=== PATIENT | female | born 1975 | race Caucasian/White ===

== ENCOUNTER 2019-11-22 06:14 | Emergency (ER) | payer MEDICAID ==
[~2019-11-22] VITALS: Ht 154.9 cm; Wt 77.1 kg
[2019-11-22 06:20] VITALS: Ht 154.9 cm; Wt 77.1 kg
[2019-11-22 07:28] LABS: PLATELET COUNT 341 x10^3mcL (130-400)
[2019-11-22 08:16] LABS: CALCIUM 8.1 mg/dL (8.5-10.1); CREATININE SERUM 3.1 mg/dL (0.6-1.0); POTASSIUM SERUM 3.9 mmol/L (3.5-5.1)
[2019-11-22 08:18] LABS: BAND NEUTROPHIL 10 % (0-10); BASOPHIL 1 % (0-2); MONOCYTE 6 % (0-7); SEGMENTED NEUTROPHILS 70 % (37-75); rbc morphology (normal/abnorm) NORMAL (NORMAL)
[2019-11-22 08:19] LABS: PLATELET MORPHOLOGY PLATELETS NORMAL
[2019-11-22 08:21] LABS: BILIRUBIN TOTAL 0.3 mg/dL (0.20-1.00); TOTAL PROTEIN, SERUM 6.4 g/dL (6.4-8.2)
[2019-11-22 08:22] LABS: ALBUMIN 2.2 g/dL (3.4-5.0)
[2019-11-22 09:15] VITALS: BP 132/68
== END 2019-11-22 09:15 | disposition home or self-care (01) ==
LOC: ED 06:14
PROVIDERS: Emergency Medicine
DX: T25.222A Burn of second degree of left foot, initial encounter (principal); T25.221A Burn of second degree of right foot, initial encounter; T31.0 Burns involving less than 10% of body surface; E11.65 Type 2 diabetes mellitus with hyperglycemia; I10 Essential (primary) hypertension; E66.9 Obesity, unspecified; J45.909 Unspecified asthma, uncomplicated; E11.22 Type 2 diabetes mellitus with diabetic chronic kidney disease; I12.9 Hypertensive chronic kidney disease with stage 1 through stage 4 chronic kidney disease, or unspecified chronic kidney disease; N18.4 Chronic kidney disease, stage 4 (severe); Z68.32 Body mass index [BMI] 32.0-32.9, adult; Z90.49 Acquired absence of other specified parts of digestive tract; X19.XXXA Contact with other heat and hot substances, initial encounter; Y93.89 Activity, other specified; Y92.89 Other specified places as the place of occurrence of the external cause; Y99.8 Other external cause status
CPT/HCPCS: 82962; J1815; J7030

== ENCOUNTER 2020-01-16 23:32 | Emergency (ER) | payer MEDICAID ==
[2020-01-16 23:49] VITALS: Ht 154.9 cm
[2020-01-17 00:27] VITALS: BP 142/81
== END 2020-01-17 00:27 | disposition home or self-care (01) ==
LOC: ED 23:32
DX: Z48.01 Encounter for change or removal of surgical wound dressing (principal); J45.909 Unspecified asthma, uncomplicated; I10 Essential (primary) hypertension; E11.9 Type 2 diabetes mellitus without complications